=== PATIENT | male | born 1990 | race African-American/Black ===

== ENCOUNTER 2018-02-13 08:28 | Inpatient (IN) | payer SELFPAY ==
[2018-02-13 09:47] LABS: #Eosinphils 0.1 thou/uL (0.0-0.7); #Lymphocytes 2.3 thou/uL (1.20-3.40); #Neutrophils 9.4 thou/uL (1.40-6.50); %Eosinophils 1.1 % (0.0-10.0); %Lymphocytes 17.8 % (21.0-51.0); %Neutrophils 73.1 % (42.0-75.0); ALT (SGPT) 28 U/L (8-55); AST (SGOT) 20 U/L (5-34); Albumin 4.7 g/dL (3.5-5.0); Alkaline Phosphatase 93 U/L (40-150); Anion Gap 10 mmol/L (10-20); BUN (Urea Nitrogen) 10 mg/dL (8.9-20.6); Bilirubin, Total 1.6 mg/dL (0.2-1.2); Calc. Creatinine Clearance 0 mL/min (70-130); Calcium 9.9 mg/dL (7.8-10.44); Carbon Dioxide 32 mmol/L (22-29); Chloride 100 mmol/L (98-107); Estimated GFR-MDRD Greater than 90; Globulin 3.9 g/dL (2.4-3.5); Glucose 101 mg/dL (70-105); Hemoglobin 13.9 g/dL (14.0-18.0); Lipase 24 U/L (8-78); Mean Corpuscular HGB CONC 31.1 g/dL (32.0-36.0); Mean Corpuscular Hemoglobin 22.3 pg (27.0-31.0); Mean Corpuscular Volume 71.7 fL (78.0-98.0); Mean Platelet Volume 8.3 fL (7.4-10.4); Platelet Count 267 thou/uL (130-400); Potassium 3.5 mmol/L (3.5-5.1); Protein, Total 8.6 g/dL (6.0-8.3); RBC Distribution Width 13.2 % (11.5-14.5); Red Blood Cell (RBC) Count 6.23 mill/uL (4.70-6.10); Sodium 138 mmol/L (136-145); White Blood Cell (WBC) Count 12.9 thou/uL (4.8-10.8)
[2018-02-13 09:48] LABS: Hypochromia SLIGHT = 6-15 cells (100X) (0-5/hpf); MDiff Complete? YES; Microcytosis SLIGHT = 6-15 cells (100X) (0-5/hpf); PLT Morphology Comment Appears Adequate; Polychromasia SLIGHT = 2-3 cells (100X) (0-2/hpf)
[2018-02-13] MEDS ORDERED: Ondansetron HCl/PF 4 MG/2 ML Vial ONE ×2 (10:11→13:25)
[2018-02-13 10:42] LABS: Bilirubin Negative (Negative); Blood, Urine Negative (Negative); Clarity CLEAR (Clear); Glucose, Urine (Dipstick) Negative (Negative); Leukocyte Trace (Negative); Nitrite Negative (Negative); Protein, Urine (Dipstick) Trace mg/dL (Neg-Trace); Specific Gravity, Urine 1.021 (1.002-1.036); Urobilinogen 0.2 mg/dL (0.2-1.0); pH, Urine 7.5 (5.0-9.0)
[2018-02-13 10:47] LABS: Bacteria/HPF None Seen HPF (None Seen); Hyaline Casts/LPF 0-3 HYALINE CAST LPF (0-3 Hyaline); Pathc Cast-AUWi Flag 0.29 (0-2.49); Squamous Epithelial 0-3 HPF (0-3); WBC/HPF 0-3 HPF (0-3)
[2018-02-13] MEDS ORDERED: ISOVUE-370 76%-LOCM 1 ML ONE (10:48)
[2018-02-13] MEDS ORDERED: Iopamidol 370 76% 50 ML VIAL FS ONE (10:48)
[2018-02-13 10:57] LABS: RBC/HPF None Seen HPF (0-3); Renal Epithelial None Seen HPF (0-3); Transitional Epithelial NONE SEEN HPF (0-3)
--- NOTE | 2018-02-13 11:28 | CT ---
CT ABDOMEN WITH CONTRAST CT PELVIS WITH CONTRAST: History: Abdominal pain. Evaluate for appendicitis. Comparison: None. FINDINGS: ABDOMEN CT: Dependent atelectatic changes. Heart size normal. No pericardial effusion. The descending thoracic ao rta and abdominal aorta has a normal caliber. No periaortic fat stranding. Intra and extrahepatic portal vein is patent. Appropriate enhancement of the liver, spleen, pancreas and adrenal glands. Gallbladder is unremarkable. Symmetric enhancement of the kidneys. Bilaterally, no obstructive uropathy. No gastrohepatic, retrocrural or periportal lymphadenopathy. No mass or free air. There are nonspecific, mildly enlarged mesenteric lymph nodes, likely reactive. Gastric mucosa is unremarkable. Multiple normal caliber small loops. Ileocecal junction is normal. Co ramiro demonstrates fecal material. No evidence of colonic obstruction. Occasional diverticulum. No dive rticulitis. Emanating from the cecal apex is a dilated tubular structure with an appendicolith. There is periappe ndiceal inflammatory change and fluid. No evidence of abscess or perforation. The appendix measures 1 cm in diameter in the craniocaudal dimension. There are adjacent enlarged mesenteric lymph nodes. Sheet Layer lymph node measures 1.6 cm in medi olateral dimension. PELVIC CT: Limited evaluation of the bladder mucosa due to decompression of the urinary bladder. No pelvic mass, lymphadenopathy or free air. No significant free fluid. No lytic or blastic lesions in the osseous structures. IMPRESSION: 1. Appendicitis. No evidence of obstruction or abscess. 2. Results of study discussed with Dr. Root 02-13-18 at 1054 hours. Code CR. POS: [facility]
[2018-02-13] MEDS ORDERED: Piperacillin/Tazobactam 4.5 GM VIAL ONE (11:40)
--- NOTE | 2018-02-13 12:18 | HP ---
DATE OF ADMISSION: 02/13/2018 HISTORY OF PRESENT ILLNESS: Mr. Denys vasquez is a 27-year-old man who presented with a 2 day history of what started as a periumbilical abdominal pain 2 days ago. The pain was described a s crampy and associated with nausea, but no emesis. The pain has since settled in the right lower qu adrant where it has persisted. He took some Gas-X and Mylanta without relief. He denies any diarrhe a or any other change in his bowel habits. Denies any fevers or chills. PAST MEDICAL HISTORY: Denies any previous medical problems. PAST SURGICAL HISTORY: He denies any previous surgeries. SOCIAL HISTORY: He lives independently. 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 He denies any cigarette smoking, ethanol or illicit drug abuse. FAMILY HISTORY: Notable only for hypertension in his mother. He specifically denies any family hist ory of diabetes mellitus, heart disease or cancer. CURRENT MEDICATIONS: None. ALLERGIES: Patient denies any known drug allergies. REVIEW OF SYSTEMS: A 10-point review of systems essentially unremarkable except for as stated in alessandro vasquez medical history and chief complaint. PHYSICAL EXAMINATION: GENERAL: This reveals a 27-year-old normally developed man who is otherwise coherent and interactive and appears stated age. The patient is alert and oriented x3, appears to be in no acute distress at the time of my evaluation. HEENT: Reveals normocephalic and atraumatic. Pupils are equal, round, reactive to light and accommo dation. CARDIOVASCULAR: Reveals regular rate and rhythm, no murmurs or gallops auscultated. LUNGS: Clear to auscultation bilaterally. Breathing regular and unlabored. ABDOMEN: Soft with point tenderness at McBurney's. He has a positive Rovsing sign. Liver and splee n otherwise nonpalpable below costal margins. EXTREMITIES: Reveals 2+ radial and pedal pulses bilaterally. No ankle edema is present. NEUROLOGIC: Reveals no focal deficits present. PERTINENT LABORATORY DATA: Today includes a CBC with 12,900 white blood cells, hemoglobin and hemato crit 13.9 and 44.7 respectively. Platelet count is 267,000. Metabolic profile: Sodium 138, potassi um is 3.5, chloride is 100, bicarbonate 32, BUN 10, creatinine is 1.05, glucose is 101. AST and ALT normal at 20 and 28 respectively. Lipase at 24. I have personally reviewed the CT scan of the abdomen and pelvis which revealed a dilated appendix wi th periappendiceal fat stranding and minimum free fluid in the pelvis. There is no pneumoperitoneum present. IMPRESSION: Acute appendicitis. PLAN: Laparoscopic appendectomy. I have advised the patient of the above findings and plan. I have also advised him of the risks and benefits of the proposed surgery to include, but not limited to bleeding, infection, injury to bowel and surrounding structures. This information was given to the patient in the presence of his sister as well as his nurse at bedside. The patient indicated understanding of information given. I answer ed his questions. The patient has granted consent for this admission and surgical intervention.
[2018-02-13] MEDS ORDERED: Ketorolac Tromethamine 30 MG/ML VIAL ONE (13:25)
[2018-02-13] MEDS ORDERED: Glycopyrrolate 0.2 MG/ML 5 ML SYRINGE ONE (13:25)
[2018-02-13] MEDS ORDERED: Lidocaine 1% PF 5 ML VIAL ONE (13:25)
[2018-02-13] MEDS ORDERED: PROPOFOL 200 MG/20 ML VIAL ONE (13:25)
[2018-02-13] MEDS ORDERED: Dexamethasone 20 MG/5 ML VIAL ONE (13:25)
[2018-02-13] MEDS ORDERED: Succinylcholine Chloride 20 MG/ML 10 ml SYRINGE FS ONE (13:25)
[2018-02-13 13:45] VITALS: BMI 34.4
[2018-02-13] MEDS ORDERED: Morphine 4 MG/ML VIAL ONE (16:11)
[2018-02-13] MEDS ORDERED: Bupivacaine/Epinephrine 0.25% 30 ML VIAL ONE (16:25)
[2018-02-13] MEDS ORDERED: Midazolam HCl 2 mg/2 ml Vial ONE (16:31)
[2018-02-13] MEDS ORDERED: Famotidine/PF 20 mg/2ml Vial ONE (16:31)
[2018-02-13] MEDS ORDERED: Fentanyl 100 MCG/2 ML VIAL ONE ×2 (16:31→19:11)
[2018-02-13] MEDS ORDERED: Ondansetron HCl/PF 4 MG/2 ML Vial IVP PRN (18:41)
[2018-02-13] MEDS ORDERED: Promethazine HCl 25 MG/ML VIAL IM PRN (18:41)
[2018-02-13] MEDS ORDERED: Promethazine HCl 25 MG/ML VIAL SLOW IVP PRN (18:41)
[2018-02-13] MEDS ORDERED: Naloxone HCl 0.4 mg/ml Vial IV PRN (18:42)
[2018-02-13] MEDS ORDERED: Acetaminophen 500 MG TAB PO PRN (18:46)
[2018-02-13] MEDS ORDERED: Ibuprofen 800 MG TAB PO PRN (18:47)
[2018-02-13 22:37] VITALS: BP 130/66; TEMP 98.4
--- NOTE | 2018-02-14 01:18 | OP ---
DATE OF OPERATION: 02/13/2018 PREOPERATIVE DIAGNOSIS: Acute appendicitis. POSTOPERATIVE DIAGNOSIS: Acute retrocecal appendicitis. SURGEON: Lex Nick D.O. ANESTHESIA: General endotracheal. ESTIMATED BLOOD LOSS: 10 mL. FLUIDS GIVEN: 1400 mL. SPONGE AND INSTRUMENT COUNT: Certified as correct x2. COMPLICATIONS: None apparent at the time of operation. OPERATION PERFORMED: Laparoscopic appendectomy. INDICATIONS FOR OPERATION: This is a 27-year-old -[place] man presented with abdominal pain. Clinical and radiographic examination was consistent with acute appendicitis, for which patient was brought to the operating room for appendectomy. FINDINGS: Consistent with suppurative dilated retrocecal appendix with no evidence of perforation. DESCRIPTION OF PROCEDURE: Informed consent obtained from the patient who was brought to the operatin g room and placed in supine position. Following general anesthesia, abdomen is sterilely prepped and draped in usual fashion. Skin below the umbilicus was infiltrated with 0.25% Marcaine with epinephr ine. A curvilinear infraumbilical incision is made using 11 scalpel. Umbilical stalk grasped with K shanier's and elevated. Veress needle was inserted through the incision and placed in the peritoneal c avity through which the abdomen was insufflated with 3 liters of CO2 gas. Intraabdominal pressure no priscila at 2 mmHg. Following abdominal insufflation, Veress needle was removed and replaced with 5 mm tr ocar introduced with a Visiport under laparoscopy. Laparoscopy reveals a proper placement of the por t, no injuries to underlying structures. Additional laparoscopy reveals right lower quadrant partial ly encased by omental adhesions. Under direct laparoscopy, 5 mm suprapubic and a 12 mm left lower qu adrant ports were placed after the overlying skin were infiltrated with 0.25% Marcaine with epinephri ne and appropriate incisions made. The patient was placed in a Trendelenburg position rotated to his left. I introduced Prestige grasper through the left lower quadrant port site using this to bluntly take down omental adhesions. The distal ileum was drawn to approximately 2 feet from the terminal i leum. I did not find any Meckel's diverticulum. A retrocecal dilated appendix is noted in the usual anatomic location. It is quite supportive, but no evidence of perforation. The mesoappendix is mar kedly thick. Using a LigaSure device, the mesoappendix was sterilely divided with good hemostasis. The appendix itself was then divided at the appendical cecal junction using an Endoloop. The appendi x itself was delivered of the abdominal cavity using an EndoCatch. Operative site was irrigated with saline. Good hemostasis noted in place. Finding no other pathology, laparoscopy was terminated. F ascia of the left lower quadrant port site was closed using 0 Vicryl suture and Endo closure device u nder laparoscopy. Abdomen was desufflated. All ports and instruments were removed and accounted for . Skin incisions were closed using 4-0 Monocryl suture in subcuticular fashion. Dermabond was appli ed over the incisional closure. The patient tolerated the operation without any apparent complicatio n and was returned to recovery room in satisfactory condition.
== END 2018-02-13 22:35 | disposition home or self-care (01) | DRG 343 ==
LOC: ERS 08:28 → 3SE 11:15
PROVIDERS: ADMIT Surgery; ATTEND Surgery
PROC: 0DTJ4ZZ Resection of Appendix, Percutaneous Endoscopic Approach (ICD-10-PCS; principal; 2018-02-13)
DX: K35.80 Unspecified acute appendicitis (principal)
CPT/HCPCS: 74177; 80053; 81003; 81015; 83690; 85025; 90471; 90686; 96374; G0008; J0131; J1100; J1885; J2001; J2250; J2270; J2405; J2543; J2704; J3010; S0028

== ENCOUNTER 2018-10-07 18:04 | Emergency (ER) | payer OTHER, SELFPAY ==
[~2018-10-07 18:04] MED LIST: ISOVUE-370 76%-LOCM 1 ML ONE
[2018-10-07] MEDS ORDERED: Fentanyl 100 MCG/2 ML VIAL ONE (18:11)
[2018-10-07] MEDS ORDERED: Ketorolac Tromethamine 30 MG/ML VIAL ONE (18:11)
[2018-10-07 18:24] LABS: Hemoglobin 12.5 g/dL (14.0-18.0); Mean Corpuscular HGB CONC 30.9 g/dL (32.0-36.0); Mean Corpuscular Hemoglobin 22.5 pg (27.0-31.0); Mean Corpuscular Volume 72.8 fL (78.0-98.0); Platelet Count 211 thou/uL (130-400); RBC Distribution Width 13.1 % (11.5-14.5); Red Blood Cell (RBC) Count 5.55 mill/uL (4.70-6.10); White Blood Cell (WBC) Count 8.5 thou/uL (4.8-10.8)
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
--- NOTE | 2018-10-07 18:36 | RAD ---
2 views right femur. HISTORY: Fall right hip pain. AP and lateral views right femur obtained. The right femur is unremarkable. No evidence of right femoral fractures, subluxations or bony lesion seen. IMPRESSION: Normal 2 views right femur.
--- NOTE | 2018-10-07 18:36 | RAD ---
AP view pelvis. HISTORY: Fall. AP view pelvis is obtained. The pelvis is unremarkable. No evidence of pelvic fractures, subluxations or bony lesion seen. IMPRESSION: Unremarkable AP view pelvis.
[2018-10-07 18:46] LABS: #Basophils 0.1 thou/uL (0.0-0.2); #Eosinphils 0.1 thou/uL (0.0-0.7); #Lymphocytes 4.1 thou/uL (1.20-3.40); #Monocytes 0.7 thou/uL (0.11-0.59); #Neutrophils 3.6 thou/uL (1.40-6.50); %Basophils 0.6 % (0.0-1.0); %Eosinophils 1.2 % (0.0-10.0); %Lymphocytes 47.7 % (21.0-51.0); %Monocytes 8.1 % (0.0-10.0); %Neutrophils 42.4 % (42.0-75.0); Elliptocytes SLIGHT = 2-5 cells (100X) (0-1/hpf); Hypochromia SLIGHT = 6-15 cells (100X) (0-5/hpf); MDiff Complete? YES; Microcytosis SLIGHT = 6-15 cells (100X) (0-5/hpf); Platelet Morphology Comment Appears Adequate
[2018-10-07 18:48] LABS: ALT (SGPT) 26 U/L (8-55); AST (SGOT) 27 U/L (5-34); Albumin 4.4 g/dL (3.5-5.0); Alkaline Phosphatase 67 U/L (40-150); Anion Gap 16 mmol/L (10-20); BUN (Urea Nitrogen) 16 mg/dL (8.9-20.6); Bilirubin, Total 0.9 mg/dL (0.2-1.2); Calc. Creatinine Clearance 0 mL/min (70-130); Calcium 9.4 mg/dL (7.8-10.44); Carbon Dioxide 21 mmol/L (22-29); Chloride 109 mmol/L (98-107); Estimated GFR-MDRD Greater than 90; Globulin 3.2 g/dL (2.4-3.5); Glucose 122 mg/dL (70-105); Magnesium 2.2 mg/dL (1.6-2.6); Potassium 3.3 mmol/L (3.5-5.1); Protein, Total 7.6 g/dL (6.0-8.3); Sodium 143 mmol/L (136-145)
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
[2018-10-07] MEDS ORDERED: HYDROcodone/Acetaminophen 5/325 mg Tablet ONE (20:09)
[2018-10-07] MEDS ORDERED: Acetaminophen 325 MG TAB ONE (20:16)
== END 2018-10-07 20:25 | disposition home or self-care (01) ==
LOC: ERS 18:04
DX: S83.421A Sprain of lateral collateral ligament of right knee, initial encounter (principal); S83.521A Sprain of posterior cruciate ligament of right knee, initial encounter; G57.31 Lesion of lateral popliteal nerve, right lower limb; V23.4XXA Motorcycle driver injured in collision with car, pick-up truck or van in traffic accident, initial encounter
CPT/HCPCS: 70450; 71045; 72125; 72170; 80053; 83735; 84484; 85025; 96374; 96375; G0390; J1885; J3010; Q9966

== ENCOUNTER 2020-04-07 02:09 | Emergency (ER) | payer OTHER ==
[2020-04-07] MEDS ORDERED: Ketorolac Tromethamine 30 MG/ML VIAL ONE (02:49)
== END 2020-04-07 03:09 | disposition home or self-care (01) ==
LOC: ERS 02:09
DX: M25.512 Pain in left shoulder (principal)
CPT/HCPCS: 96372; 99283; J1885